=== PATIENT | male | born 1945 | race Caucasian/White ===

== ENCOUNTER 2020-06-15 16:20 | Outpatient (CLI) | payer MEDICARE, SELFPAY | END 2020-06-15 16:21 | disposition home or self-care (01) | LOC: ANHCOVIDVC 16:20 | PROVIDERS: PCP Orthopaedic Surgery | DX: Z23 Encounter for immunization (principal) | CPT/HCPCS: 0001A; 91300 ==

== ENCOUNTER 2020-07-06 16:14 | Outpatient (CLI) | payer MEDICARE, SELFPAY | END 2020-07-06 16:15 | disposition home or self-care (01) | LOC: ANHCOVIDVC 16:14 | PROVIDERS: PCP Orthopaedic Surgery | DX: Z23 Encounter for immunization (principal) | CPT/HCPCS: 0002A; 91300 ==

== ENCOUNTER 2023-12-08 09:57 | Outpatient (CLI) | payer MEDICARE, SELFPAY ==
[2023-12-08 11:10] LABS: Basophils Absolute Auto 0.1 K/mm3 (0.0-0.1); Basophils Percent Auto 0.9 % (0.2-1.2); Eosinophils Absolute Auto 0.1 K/mm3 (0-0.3); Eosinophils Percent Auto 1.5 % (0-4.4); Hematocrit 48.1 % (42.0-52.0); Hemoglobin 16.3 g/dL (14.0-18.0); Immature Granulocyte Absolute 0.02 K/mm3 (0.00-0.031); Immature Granulocyte Percent A 0.3 % (0-0.5); Lymphocytes Absolute Auto 1.82 K/mm3 (0.9-3.2); Lymphocytes Percent Auto 24.6 % (18.3-44.2); Mean Corpuscular HGB Conc 33.9 g/dl (32-36); Mean Corpuscular Hemoglobin 29.5 pg (26-34); Mean Corpuscular Volume 87.1 fl (80-100); Mean Platelet Volume 9.5 fl (7.4-10.4); Monocytes Absolute Auto 0.6 K/mm3 (0.1-0.6); Monocytes Percent Auto 8.3 % (2.6-8.5); Neutrophils Absolute Auto 4.8 K/mm3 (1.3-6.7); Neutrophils Percent Auto 64.4 % (45.5-73.1); Platelet Count Result 254 k/mm3 (150-375); Red Blood Count 5.52 M/mm3 (4.6-6.20); Red Cell Distribution Width 13.4 % (11.5-14.5); White Blood Count 7.4 K/mm3 (4.5-10.0)
[2023-12-08 11:46] LABS: Alanine Aminotransferase 16 U/L (6-50); Albumin Level 4.1 g/dL (3.5-5.1); Alkaline Phosphatase 60 U/L (38-126); Anion Gap 10 mmol/L (4-12); Aspartate Amino Transferase 29 U/L (17-59); Bilirubin,Total 0.9 mg/dL (0.2-1.3); Blood Urea Nitrogen 22 mg/dL (9-20); Calcium 9.4 mg/dL (8.4-10.2); Carbon Dioxide 29 mmol/L (22-30); Chloride 102 mmol/L (98-107); Cholesterol 184 mg/dL (0-200); Estimated Glomerular Filt Rate > 60; Glucose 89 mg/dL (65-110); HDL Direct 58 mg/dL; Sodium 141 mmol/L (137-145); Triglycerides 62 mg/dL (<150)
[2023-12-08 11:47] LABS: Free T4 Free Thyroxine 1.38 ng/mL (0.78-2.19)
[2023-12-08 11:57] LABS: LDL Cholesterol Direct 106 mg/dL
== END 2023-12-08 09:58 | disposition home or self-care (01) ==
PROVIDERS: PCP Orthopaedic Surgery; Visit Provider Internal Medicine
DX: Z13.6 Encounter for screening for cardiovascular disorders (principal); N42.9 Disorder of prostate, unspecified; R53.83 Other fatigue; R53.0 Neoplastic (malignant) related fatigue; R53.1 Weakness; R53.81 Other malaise
CPT/HCPCS: 36415; 80053; 80061; 84153; 84439; 84443; 85025